=== PATIENT | male | born 1950 | race Caucasian/White ===

== ENCOUNTER 2017-11-15 09:59 | Emergency (ER) | payer MEDICARE ==
[2017-11-15] MEDS ORDERED: Ketorolac Tromethamine 30 MG/ML VIAL ONE (10:51)
[2017-11-15] MEDS ORDERED: Ondansetron HCl/PF 4 MG/2 ML Vial ONE (10:51)
--- NOTE | 2017-11-15 11:30 | CT ---
CT OF LUMBAR SPINE WITHOUT CONTRAST: COMPARISON: None. HISTORY: Sudden onset of low back pain. TECHNIQUE: Multiple contiguous axial images were obtained in a CT of the lumbar spine without contrast. FINDINGS: There is slight wedging of the L1 vertebral body with less than 10% height loss. 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 No acute fracture or subluxation is seen. There are small anterior osteophytes in the upper aureliano mbar spine. Atherosclerotic calcifications are seen in the aorta. The other prevertebral and paraspinal soft tis sues are unremarkable. There is no bony narrowing of the central canal. There is mild to moderate bilateral neural foramina l narrowing from L3-4 through L5-S1. Posterior facet arthrosis is seen at L4-L5 and L5-S1. IMPRESSION: Degenerative changes of the lumbar spine without acute osseous abnormality. POS: LETTY
[2017-11-15] MEDS ORDERED: Cyclobenzaprine 10 MG TAB ONE (11:51)
[2017-11-15] MEDS ORDERED: methylPREDNISolone Sod Succ/PF 125 MG/2 ML VIAL ONE (11:51)
[2017-11-15] MEDS ORDERED: Sterile Water 10 ML ONE (11:53)
== END 2017-11-15 13:10 | disposition home or self-care (01) ==
LOC: MADERS 09:59 → EDBD 09:59 → MADERS 13:10
DX: M54.42 Lumbago with sciatica, left side (principal); E11.9 Type 2 diabetes mellitus without complications; I10 Essential (primary) hypertension; M19.90 Unspecified osteoarthritis, unspecified site
CPT/HCPCS: 72131; 96374; 96375; A4216; J1885; J2405; J2930